=== PATIENT | female | born 1970 | race Caucasian/White ===

== ENCOUNTER 2019-09-30 10:52 | Emergency (ER) | payer BC ==
[2019-09-30] MEDS ORDERED: IBUPROFEN 400 MG TAB ONE (12:16)
[2019-09-30] MEDS ORDERED: MORPHINE 4 MG/ML SYR ONE (12:16)
[2019-09-30] MEDS ORDERED: ONDANSETRON 4 MG (ODT) TAB ONE (12:17)
--- NOTE | 2019-09-30 12:48 | RAD REPORT ---
EXAM DESCRIPTION: RAD - Chest Pa And Lat (2 Views) - 09/30/2019 12:43 pm CLINICAL HISTORY: PAIN Chest pain. COMPARISON: CHEST PA AND LAT 2 VIEW dated 09/30/2014 FINDINGS: The lungs are clear. The heart is normal in size. No displaced fractures. IMPRESSION: No acute or concerning finding suspected.
--- NOTE | 2019-09-30 12:56 | RAD REPORT ---
EXAM DESCRIPTION: RAD - Ribs Right - 09/30/2019 12:44 pm CLINICAL HISTORY: PAIN COMPARISON: Chest Pa And Lat (2 Views) dated 09/30/2019 FINDINGS: No displaced rib fracture is seen. No aggressive rib lesion. IMPRESSION: Negative study.
--- NOTE | 2019-09-30 13:18 | EDPHYS ---
Physician Documentation [facility] Name: Kimberly Weiss Age: 49 yrs Sex: Female : 1970 Arrival Date: 09/30/2019 Time: 10:54 Bed 25 Private MD: ED Physician Woodrow Vital HPI: 09/30 13:14 This 49 yrs old Female presents to ER via Ambulatory with complaints of Rib jr8 Injury. 13:14 The patient or guardian reports chest pain that is located primarily in the anterior jr8 chest wall, anterior aspect of right upper chest. Onset: The symptoms/episode began/occurred acutely, 1 week(s) ago. The pain does not radiate. Associated signs and symptoms: Pertinent positives: shortness of breath. The chest pain is described as sharp. Duration: The patient or guardian reports multiple episodes, that are intermittent. Modifying factors: The symptoms are alleviated by nothing. the symptoms are aggravated by activity, breathing, cough, deep breath. Severity of pain: At its worst the pain was moderate in the emergency department the pain is unchanged. The patient has not experienced similar symptoms in the past. The patient has not recently seen a physician. Stated that she was at the [employer] festival and fell landing on a log. Hit right anterior chest. Since then has had pain . 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 - Social history:: Smoking status: unknown. - Ebola Screening: : No symptoms or risks identified at this time. ROS: 13:14 Eyes: Negative for injury, pain, redness, and discharge, ENT: Negative for injury, jr8 pain, and discharge, Neck: Negative for injury, pain, and swelling, Abdomen/GI: Negative for abdominal pain, nausea, vomiting, diarrhea, and constipation, Back: Negative for injury and pain, MS/Extremity: Negative for injury and deformity, Skin: Negative for injury, rash, and discoloration, Neuro: Negative for headache, weakness, numbness, tingling, and seizure. 13:14 Cardiovascular: Positive for chest pain, Negative for edema, orthopnea, palpitations, paroxysmal nocturnal dyspnea. 13:14 Respiratory: Positive for shortness of breath. Exam: 13:16 Head/Face: Normocephalic, atraumatic. Eyes: Pupils equal round and reactive to light, jr8 extra-ocular motions intact. Lids and lashes normal. Conjunctiva and sclera are non-icteric and not injected. Cornea within normal limits. Periorbital areas with no swelling, redness, or edema. ENT: Nares patent. No nasal discharge, no septal abnormalities noted. Tympanic membranes are normal and external auditory canals are clear. Oropharynx with no redness, swelling, or masses, exudates, or evidence of obstruction, uvula midline. Mucous membranes moist. Neck: Trachea midline, no thyromegaly or masses palpated, and no cervical lymphadenopathy. Supple, full range of motion without nuchal rigidity, or vertebral point tenderness. No Meningismus. Cardiovascular: Regular rate and rhythm with a normal S1 and S2. No gallops, murmurs, or rubs. Normal PMI, no JVD. No pulse deficits. Respiratory: Lungs have equal breath sounds bilaterally, clear to auscultation and percussion. No rales, rhonchi or wheezes noted. No increased work of breathing, no retractions or nasal flaring. Abdomen/GI: Soft, non-tender, with normal bowel sounds. No distension or tympany. No guarding or rebound. No evidence of tenderness throughout. Back: No spinal tenderness. No costovertebral tenderness. Full range of motion. Skin: Warm, dry with normal turgor. Normal color with no rashes, no lesions, and no evidence of cellulitis. MS/ Extremity: Pulses equal, no cyanosis. Neurovascular intact. Full, normal range of motion. Neuro: Awake and alert, GCS 15, oriented to person, place, time, and situation. Cranial nerves II-XII grossly intact. Motor strength 5/5 in all extremities. Sensory grossly intact. Cerebellar exam normal. Normal gait. 13:16 Chest/axilla: Inspection: normal, Palpation: tenderness, that is moderate, of the anterior aspect of right upper chest. Vital Signs: 11:19 BP 125 / 94; Pulse 71; Resp 16; Temp 97.8; Pulse Ox 97% ; Weight 72.57 kg; Height 5 ft. sv 3 in. (160.02 cm); Pain 8/10; 13:18 BP 141 / 92; Pulse 63; Resp 18; Pulse Ox 95% on R/A; mg2 11:19 Body Mass Index 28.34 (72.57 kg, 160.02 cm) sv MDM: 11:58 Patient medically screened. jr8 13:17 Data reviewed: vital signs, nurses notes, radiologic studies, plain films. Data jr8 interpreted: Pulse oximetry: on room air is 97 %. Interpretation: normal. Counseling: I had a detailed discussion with the patient and/or guardian regarding: the historical points, exam findings, and any diagnostic results supporting the discharge/admit diagnosis, radiology results, the need for outpatient follow up, a family practitioner, to return to the emergency department if symptoms worsen or persist or if there are any questions or concerns that arise at home. Response to treatment: the patient's symptoms have mildly improved after treatment. 09/30 11:21 Order name: Ribs Right XRAY; Complete Time: 13:17 sv 09/30 12:44 Order name: Chest Pa And Lat (2 Views); Complete Time: 13:01 EDMS Administered Medications: 12:25 Drug: Ibuprofen 800 mg Route: PO; mg2 13:27 Follow up: Response: No adverse reaction; Marked relief of symptoms mg2 12:25 Drug: morphine 4 mg Route: IM; Site: left gluteus; mg2 13:27 Follow up: Response: No adverse reaction; Marked relief of symptoms mg2 12:25 Drug: Zofran 4 mg Route: PO; mg2 13:26 Follow up: Response: No adverse reaction; Marked relief of symptoms mg2 Disposition: 10/01 07:26 Co-signature as Attending Physician, Woodrow Vital MD I agree with the assessment and kdr plan of care. Disposition: 09/30/19 13:18 Discharged to Home. Impression: Chest pain, unspecified. - Condition is Stable. - Discharge Instructions: Rib Contusion, Chest Wall Pain, Rib Fracture. - Prescriptions for Ibuprofen 800 mg Oral Tablet - take 1 tablet by ORAL route every 12 hours As needed take with food; 20 tablet. Tylenol- Codeine #3 300-30 mg Oral Tablet - take 2 tablets by ORAL route every 6 hours As needed; 12 tablet. - Medication Reconciliation Form, Thank You Letter, Antibiotic Education, Prescription Opioid Use form. - Follow up: Private Physician; When: 1 week; Reason: Recheck today's complaints, Continuance of care, Re-evaluation by your physician. - Problem is new. - Symptoms have improved. Signatures: Dispatcher [employer] [facility] Sofia Chandler, RN RN Woodrow Vital MD MD [facility] Stephanie Rubio RN RN aa5 Cosmo Fuentes, PA PA jr8 Marcos Son RN RN mg2 Corrections: (The following items were deleted from the chart) 09/30 12:43 11:23 Chest Single View+RAD.RAD.[email or web address] ordered. [facility] 13:41 13:18 09/30/2019 13:18 Discharged to Home. Impression: Chest pain, unspecified. aa5 Condition is Stable. Forms are Medication Reconciliation Form, Thank You Letter, Antibiotic Education, Prescription Opioid Use. Follow up: Private Physician; When: 1 week; Reason: Recheck today's complaints, Continuance of care, Re-evaluation by your physician. Problem is new. Symptoms have improved. jr8
--- NOTE | 2019-09-30 13:18 | ER ---
Nurse's Notes [facility] Name: Kimberly Weiss Age: 49 yrs Sex: Female : 1970 Arrival Date: 09/30/2019 Time: 10:54 Bed 25 Private MD: Diagnosis: Chest pain, unspecified Presentation: 09/30 11:16 Presenting complaint: Patient states: was up about 4 feet playing with a pillow fight sv and fell off of the platform with her right arm against the right side of her chest and landed on hay happened about a week ago, reports SOB with breathing. Transition of care: patient was not received from another setting of care. Onset of symptoms was September 23, 2019. Risk Assessment: Do you want to hurt yourself or someone else?. Care prior to arrival: None. 11:16 Method Of Arrival: Ambulatory sv 11:16 Acuity: NIKOLAS 3 sv 11:20 Note Informed Cosmo TAM of pt's reason for visit and symptoms, ok to order CXR with rib. sv 13:19 Initial Sepsis Screen: Does the patient meet any 2 criteria? No. Patient's initial mg2 sepsis screen is negative. Does the patient have a suspected source of infection? No. Patient's initial sepsis screen is negative. Triage Assessment: 11:22 General: Appears in no apparent distress. uncomfortable, well developed, Behavior is sv calm, cooperative, appropriate for age. Pain: Complains of pain in right lateral posterior chest and right lateral anterior chest. Neuro: Level of Consciousness is awake, alert, obeys commands, Gait is steady. Respiratory: Respiratory effort is even, unlabored. 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 - Social history:: Smoking status: unknown. - Ebola Screening: : No symptoms or risks identified at this time. Screenin:18 Abuse screen: Denies threats or abuse. Denies injuries from another. Nutritional mg2 screening: No deficits noted. Tuberculosis screening: No symptoms or risk factors identified. Fall Risk None identified. Assessment: 12:20 General: Appears in no apparent distress. comfortable, Behavior is calm, cooperative. mg2 12:20 Pain: Complains of pain in anterior aspect of right upper chest Pain does not radiate. mg2 Pain currently is 5 out of 10 on a pain scale. Quality of pain is described as aching, Pain began gradually, Is intermittent. Neuro: Level of Consciousness is awake, alert, obeys commands, Oriented to person, place, time, situation. Cardiovascular: Capillary refill < 3 seconds Patient's skin is warm and dry. Respiratory: Airway is patent Respiratory effort is even, unlabored, Respiratory pattern is regular, symmetrical. Respiratory: Reports shortness of breath. GI: No signs and/or symptoms were reported involving the gastrointestinal system. : No signs and/or symptoms were reported regarding the genitourinary system. EENT: No deficits noted. No signs and/or symptoms were reported regarding the EENT system. Derm: Skin is intact, is healthy with good turgor, Skin is pink, warm \T\ dry. normal. Musculoskeletal: Circulation, motion, and sensation intact. Capillary refill < 3 seconds. Vital Signs: 11:19 BP 125 / 94; Pulse 71; Resp 16; Temp 97.8; Pulse Ox 97% ; Weight 72.57 kg; Height 5 ft. sv 3 in. (160.02 cm); Pain 8/10; 13:18 BP 141 / 92; Pulse 63; Resp 18; Pulse Ox 95% on R/A; mg2 11:19 Body Mass Index 28.34 (72.57 kg, 160.02 cm) sv ED Course: 10:54 Patient arrived in ED. as 11:18 Triage completed. sv 11:19 Arm band placed on. sv 11:57 Cosmo Fuentes PA is PHCP. jr8 11:58 Woodrow Vital MD is Attending Physician. jr8 12:13 Marcos Son, KI is Primary Nurse. mg2 12:40 X-ray completed. Patient tolerated procedure well. Patient moved back from radiology. mh1 12:43 Ribs Right XRAY In Process Unspecified. EDMS 12:44 Chest Pa And Lat (2 Views) In Process Unspecified. EDMS 13:18 Patient has correct armband on for positive identification. Pulse ox on. NIBP on. Door mg2 closed. Warm blanket given. 13:18 No provider procedures requiring assistance completed. Patient did not have IV access mg2 during this emergency room visit. Administered Medications: 12:25 Drug: Ibuprofen 800 mg Route: PO; mg2 13:27 Follow up: Response: No adverse reaction; Marked relief of symptoms mg2 12:25 Drug: morphine 4 mg Route: IM; Site: left gluteus; mg2 13:27 Follow up: Response: No adverse reaction; Marked relief of symptoms mg2 12:25 Drug: Zofran 4 mg Route: PO; mg2 13:26 Follow up: Response: No adverse reaction; Marked relief of symptoms mg2 Outcome: 13:18 Discharge ordered by MD. palencia 13:40 Discharged to home ambulatory. mg2 13:40 Condition: stable 13:40 Discharge instructions given to patient, Instructed on discharge instructions, follow mg2 up and referral plans. medication usage, Demonstrated understanding of instructions, follow-up care, medications, Prescriptions given X 2. 13:41 Patient left the ED. aa5 Signatures: Dispatcher [employer] EDSofia August RN RN Billie Maldonado [facility] Maritza Gibson Audri, RN RN aa5 Cosmo Fuentes PA PA jr8 Marcos Son RN RN mg2
[2019-09-30 16:15] VITALS: TEMP 97.8
[2019-09-30 16:17] VITALS: BP 141/92; O2SAT 95
== END 2019-09-30 13:41 | disposition home or self-care (01) ==
LOC: ER 10:52
DX: R07.9 Chest pain, unspecified (principal); W17.89XA Other fall from one level to another, initial encounter; Y93.89 Activity, other specified; Y92.89 Other specified places as the place of occurrence of the external cause
CPT/HCPCS: 71046; 96372; 99284